=== PATIENT | male | born 1945 | race Two or more races ===

== ENCOUNTER 2020-03-29 10:49 | Observation (INO) | payer OTHER ==
[~2020-03-29] VITALS: Ht 180.3 cm; Wt 73.4 kg
[2020-03-29] MEDS ORDERED: cefTRIAXone 1GM/50ML D5W 50 ML IV ONE (11:00)
[2020-03-29] MEDS ORDERED: DexAMETHasone SOD PHOS 10MG/1ML VIAL INJ IV ONE (11:00)
[2020-03-29] MEDS ORDERED: FUROSEMIDE 20 MG/2 ML VIAL IV ONE (11:00)
[2020-03-29 11:37] LABS: Hematocrit 41.1 % (41.0-53.0); Hemoglobin 13.5 g/dL (13.5-17.5); Mean Corpuscular Hemoglobin 30.3 pg (28.0-32.0); Mean Corpuscular Volume 91.9 fL (80.0-100.0); Platelet Count (auto) 254 10^3/uL (140-450); Red Blood Cells 4.47 10^6/uL (4.5-5.90); Red Cell Distribution Width 17.6 % (11.8-14.3); White Blood Cell 18.3 10^3/uL (4.4-10.8)
[2020-03-29 11:51] LABS: Albumin 1.8 g/dL (3.4-5.0); Calcium 8.6 mg/dL (8.5-10.1); Potassium 4.2 mmol/L (3.5-5.1)
[2020-03-29 11:55] LABS: Lactic Acid w/Reflex 2.7 mmol/L (0.4-2.0)
[2020-03-29 11:59] LABS: BUN/Creatinine Ratio 14.6; Bilirubin, Total 0.5 mg/dL (0.2-1.0); CRP High Sensitivity 2.71 mg/dL (< 0.3); Total Protein 4.6 g/dL (6.4-8.2)
[2020-03-29 12:05] LABS: Basophils % (manual) 0 (0.0-2.0); Blast Cells 0; Eosinophils % (manual) 0 (0-7); Metamyelocytes % 0; Promyelocytes % 0; Reactive Lymphocytes 0
[2020-03-29 12:11] LABS: INR 0.98 (0.9-1.15); Partial Thromboplastin Time 25.1 sec (23.0-31.2)
[2020-03-29] MEDS ORDERED: SODIUM CHLORIDE 0.9% 500 ML IV ONE (12:31)
[2020-03-29] MEDS ORDERED: SODIUM CHLORIDE 0.9% 1,000 ML IV ONE (12:31)
[2020-03-29] MEDS ORDERED: ENOXAPARIN SOD 80 MG/0.8ML SYRINGE SC ONE (12:45)
[2020-03-29 13:00] LABS: Band Neutrophils % (manual) 1; Lymphocytes % (manual) 1 (10.0-50.0); Monocytes % (manual) 1 (0-12); Myelocytes % 1
[2020-03-29] MEDS ORDERED: MORPHINE SULF INJ 2 MG/ML SYRINGE 1ML IV PRN (13:15)
[2020-03-29] MEDS ORDERED: VANCOMYCIN PER PHARMACY 0 MG IV SCH (13:15)
[2020-03-29] MEDS ORDERED: PIPERACILLIN-TAZOB 2.25GM 50 ML IV SCH (13:15)
[2020-03-29] MEDS ORDERED: NITROGLYCERIN 0.4 MG SL TAB SL PRN (13:15)
[2020-03-29 13:27] LABS: Urine Bacteria MOD /hpf (None Seen); Urine Blood Negative /uL (Negative); Urine Hyaline Cast FEW /lpf (0 - 2); Urine WBC 64 /hpf (0 - 3); Urine WBC Clumps PRESENT /hpf (None Seen)
--- NOTE | 2020-03-29 13:50 | NUR ---
Respiratory note: ASSESSED PT , PT WAS RESTING , NO RESP DISTRESS NOTED. HR 74, RR 18, SPO2 98% ON 3L N/C.
[2020-03-29] MEDS ORDERED: VANCOMYCIN 1GM/250ML 250 ML IV ONE ×2 (15:00→22:00)
--- NOTE | 2020-03-29 15:00 | NUR ---
Telemetry admit from AMY BONILLA admitted to Telemetry unit after SBAR received. Patient oriented to PAMELA RAMÍREZ, primary RN, unit, room, bed, and unit policies regarding patient care and visiting hours. Patient now on continuous telemetry monitoring, tele box # 7 and telemetry reading on arrival 76 NSR. Patient placed on bedside oxygen 3l, weighed by bedscale and encouraged to call if they need something. All questions and concerns addressed, patient verbalized understanding.
[2020-03-29] MEDS ORDERED: LEVE1TAB46 PO (15:25)
[2020-03-29] MEDS ORDERED: ATOR40TA52 PO (15:25)
[2020-03-29] MEDS ORDERED: APIX5TAB PO (15:25)
[2020-03-29] MEDS ORDERED: CARV3.1240 PO (15:25)
[2020-03-29] MEDS ORDERED: CHOL100029 PO (15:25)
[2020-03-29] MEDS ORDERED: FER325T PO (15:25)
[2020-03-29] MEDS ORDERED: OMEG100078 PO (15:25)
[2020-03-29] MEDS ORDERED: AMLO5TAB15 PO (15:25)
[2020-03-29] MEDS ORDERED: PRED-158 PO (15:25)
[2020-03-29] MEDS ORDERED: LATA0.0019 EACHEYE (15:25)
[2020-03-29] MEDS ORDERED: LISI-646 PO (15:25)
[2020-03-29] MEDS ORDERED: OMEP-263 PO (15:25)
--- NOTE | 2020-03-29 16:23 | NUR ---
UPDATED OZZY ARI ON POC. OZZY IS AN RN AND WOULD LIKE TO SPEAK TO THE MD DIRECTLY PLEASE HER # [phone].
[2020-03-29 17:00] VITALS: BP 141/95
--- NOTE | 2020-03-29 17:30 | NUR ---
CARDIO DR YOLANDA HODGES WANTS TO WAIT TO RESUME HOME MEDICATIONS AT THIS TIME. WILL CONTINUE TO MONITOR
[2020-03-29] MEDS: AZITHROMYCIN 500MG/ 250ML 250 ML IV SCH (17:31)
--- NOTE | 2020-03-29 18:13 | NUR ---
PATIENT OFF TELE REPLACED MONITOR AND PATIENT REMOVED AGAIN. PATIENT ALERT AND ORIENTED TO SELF AND HIS AND SITUATION. PATIENT REFUSING TELE MONITOR AFTER EDUCATION. WILL CONTINUE TO MONITOR.
--- NOTE | 2020-03-29 19:30 | NUR ---
Opening Shift Note Assumed care of patient, awake and alert. No S/S of distress/SOB or pain. On 3LNC saturating at 98%. Patient has dyson catheter draining clear light dewayne urine. Instructed on POC and to call for assist PRN, will continue to monitor for changes Q1hr and PRN. Bed placed in lowest position, bed alarm turned on and call light within reach.
[2020-03-29 20:00] VITALS: BP 147/78
--- NOTE | 2020-03-29 20:00 | NUR ---
Patient keeps refusing tele box. Will try again later.
[2020-03-29] MEDS: PIPERACILLIN-TAZOB 2.25GM 50 ML IV SCH (21:00)
[2020-03-29 22:00] VITALS: BP 147/78
[2020-03-30] MEDS: PIPERACILLIN-TAZOB 2.25GM 50 ML IV SCH ×4 (02:48→20:50)
--- NOTE | 2020-03-30 03:00 | NUR ---
Report given to LEONARDO Castillo.
--- NOTE | 2020-03-30 03:24 | NUR ---
Patient transferred to [facility] with all personal belongings. No distress noted at time of transfer.
[2020-03-30 05:31] VITALS: BP 151/93
--- NOTE | 2020-03-30 06:52 | NUR ---
CLOSING SHIFT NOTE WILL ENDORSE CARE TO DAY SHIFT RN, PT [id number], NO S/S OF DISTRESS OR SOB
[2020-03-30 08:00] VITALS: BP 150/78
[2020-03-30 08:26] VITALS: BP 150/86
[2020-03-30 09:03] LABS: Basophils # (auto) 0 10 ^3/uL (0-0.2); Basophils % (auto) 0.1 % (0.0-2.0); Eosinophils # (auto) 0 10 ^3/uL (0-0.8); Hematocrit 42.3 % (41.0-53.0); Hemoglobin 14.1 g/dL (13.5-17.5); Lymphocytes # (auto) 0.5 10 ^3/uL (0.4-5.4); Mean Corpuscular Hemoglobin 30.5 pg (28.0-32.0); Mean Corpuscular Hgb Conc. 33.2 g/dL (32.0-36.0); Mean Corpuscular Volume 91.6 fL (80.0-100.0); Monocytes # (auto) 0.6 10 ^3/uL (0-1.3); Neutrophils # (auto) 15.2 10 ^3/uL (1.6-8.6); Neutrophils % (auto) 92.9 % (37.0-80.0); Nucleated Red Blood Cells % 0.1 %; Platelet Count (auto) 160 10^3/uL (140-450); Red Blood Cells 4.62 10^6/uL (4.5-5.90); Red Cell Distribution Width 17.6 % (11.8-14.3); White Blood Cell 16.3 10^3/uL (4.4-10.8)
--- NOTE | 2020-03-30 09:30 | NUR ---
PHONE CONSENTS FOR THORACENTESIS PATIENT CONTINUES WITH EPISODES OF CONFUSION AND CONTINUED TO BELIEVE HE WAS SCHEDULED FOR AN MRI NOT A THORACENTESIS. DR GARRETT AND THIS RN SPOKE WITH TO PHONE CONSENT FOR THORACENTESIS. VERBALIZED UNDERSTANDING OF PROCEDURE AND RISKS VERSUS BENEFITS EXPLAINED BY DR GARRETT AND REINFORCED BY THIS RN; DR GARRETT ALSO BEDSIDE TO SPEAK WITH THE PATIENT. CONSENTS SIGNED BY 2 RNS AND PLACED IN HARD CHART.
[2020-03-30] MEDS: AZITHROMYCIN 500MG/ 250ML 250 ML IV SCH (10:02)
--- NOTE | 2020-03-30 10:30 | NUR ---
WOUND PHOTO TAKEN OF LEFT HAND
[2020-03-30 11:27] LABS: Calcium 8.3 mg/dL (8.5-10.1); Potassium 4.2 mmol/L (3.5-5.1)
--- NOTE | 2020-03-30 11:49 | NUR ---
THORACENTESIS DONE BY DR NAIK IN ULTRASOUND. PT TOLERATED WELL. VS [id number]%. 400 ML OF PLEURAL FLUID REMOVED AND SENT TO LAB Addendum: 03/30/20 at 1719 by PAMELA RAMÍREZ RN dressing on left posterior lateral back, gauze with tegaderm, clean dry and intact.
[2020-03-30 12:50] VITALS: BP 160/56
[2020-03-30 16:41] VITALS: BP 150/91
[2020-03-30] MEDS ORDERED: hydrALAZINE HCL 20 MG/ML VL IV PRN (17:15)
--- NOTE | 2020-03-30 17:19 | NUR ---
resumed home medication per dr molina resume carvedilol , amlodipine, hold lisinopril.
--- NOTE | 2020-03-30 17:21 | NUR ---
PATIENT HISTORY OF FALLS-DTR PER DTR ARI PATIENT HAS A HISTORY OF FALLS AND STROKE. RECENT FALL IN 2019 PATIENT HAD A STROKE WITH LEFT SIDE DEFICIT, FELL HIT HEAD; PATIENT WENT TO PT REHAB FROM SEPTEMBER TO OCTOBER 2019 AND WAS ABLE TO WALK WITH A CANE WITHOUT DIFFICULTY. DTR STATED THE PAST 2 MONTHS PATIENT INCREASED WEAKNESS AND 3 DAYS PRIOR TO TREE DRILLER PATIENT NO LONGER ABLE TO WALK.
--- NOTE | 2020-03-30 17:26 | NUR ---
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 PER PATIENTS BACK PAIN HAS INCREASED OVER THE LAST 2 MONTHS.
--- NOTE | 2020-03-30 18:57 | NUR ---
ENDORSED CAR TO NIGHT RN.
--- NOTE | 2020-03-30 19:30 | NUR ---
RECEIVED REPORT FROM NURSE SANTIAGO TO RESUME CARE OF PATIENT.
[2020-03-30 22:00] VITALS: BP 134/91
--- NOTE | 2020-03-30 22:30 | NUR ---
PATIENT BEING DIFFICULT WITH CARE AND REFUSES TO TURN ATTEMPTED TO INFUSE IV DOSE OF ZOSYN. AND COMPLETED YET PATIENT IS LYING ON HIS STOMACH AND LEFT ARM NOT ANATOMICALLY POSITTION PROPERLY TO PROMOTE PERFUSION. WILL CONTINUE TO MERCEDES HERMAN.
[2020-03-31] MEDS: PIPERACILLIN-TAZOB 2.25GM 50 ML IV SCH ×4 (03:00→21:34)
--- NOTE | 2020-03-31 03:30 | NUR ---
ATTEMPTED TO GIVE DOSE OF IV ZOSYN PATIENT NOT COOPERATIVE WITH CARE. PATIENT REFUSED. IV ACCESS IS NOT IN GOOD POSITION ON ARM TO INFUSE MEDICATION PATIENT ENTIRE LEFT ARM SWELLING AND BRUISING. ATTEMPTED TO INSERT IV ACCESS WITH NO SUCCESS PATIENT HAS DIFFICULT VEINS AND BUE SWELLING AND IS BEING UNCOOPERATIVE WITH CARE. PATIENT REFUSING TO HAVE IV ACCESS INPUTTED. WILL CONTINUE TO MONITOR PATIENT.
[2020-03-31 05:00] VITALS: BP 140/72
--- NOTE | 2020-03-31 08:10 | NUR ---
Opening Shift Note Assumed care of patient, awake and alert x2. No S/S of distress/SOB or pain. Instructed on POC and to call for assist PRN, will continue to monitor for changes Q1hr and PRN.
[2020-03-31 09:00] VITALS: BP 122/67
--- NOTE | 2020-03-31 09:00 | NUR ---
Bedside Commode Assisted patient to bedside commode with moderate assistance.
[2020-03-31 09:46] LABS: Basophils # (auto) 0.1 10 ^3/uL (0-0.2); Basophils % (auto) 0.5 % (0.0-2.0); Eosinophils # (auto) 0.2 10 ^3/uL (0-0.8); Eosinophils % (auto) 1.2 % (0.0-7.0); Hematocrit 38.9 % (41.0-53.0); Hemoglobin 12.9 g/dL (13.5-17.5); Lymphocytes # (auto) 0.6 10 ^3/uL (0.4-5.4); Lymphocytes % (auto) 4.7 % (10.0-50.0); Mean Corpuscular Hemoglobin 30.3 pg (28.0-32.0); Mean Corpuscular Hgb Conc. 33.1 g/dL (32.0-36.0); Mean Corpuscular Volume 91.4 fL (80.0-100.0); Monocytes # (auto) 0.4 10 ^3/uL (0-1.3); Monocytes % (auto) 3.4 % (0.0-12.0); Neutrophils # (auto) 11.9 10 ^3/uL (1.6-8.6); Neutrophils % (auto) 90.2 % (37.0-80.0); Nucleated Red Blood Cells % 0.1 %; Platelet Count (auto) 217 10^3/uL (140-450); Red Blood Cells 4.25 10^6/uL (4.5-5.90); Red Cell Distribution Width 17.1 % (11.8-14.3); White Blood Cell 13.1 10^3/uL (4.4-10.8)
[2020-03-31] MEDS ORDERED: CARVEDILOL 3.125 MG TAB PO SCH (10:00)
[2020-03-31] MEDS ORDERED: amLODIPine BESYLATE 5 MG TAB PO SCH (10:00)
[2020-03-31 10:03] LABS: BUN/Creatinine Ratio 17.8; Calcium 8.7 mg/dL (8.5-10.1); Potassium 4.4 mmol/L (3.5-5.1)
[2020-03-31] MEDS ORDERED: VANCOMYCIN 1GM/250ML 250 ML IV SCH ×2 (11:00→13:00)
--- NOTE | 2020-03-31 12:30 | NUR ---
WOUND CARE NOTE: IN TO SEE PATIENT AT THIS TIME PER WOUND CARE CONSULT REQUEST. PATIENT ADMITTED TO [facility] WITH DIAGNOSIS OF CHEST PAIN. CURRENT JOEY SCORE IS 17. PATIENT IS ABLE TO ASSIST WITH HIS TURNING/REPOSITIONING, BUT IS WEAK. PATIENT IS NOTED TO HAVE LIGHT RED, BUT BLANCHABLE SKIN TO SACRUM, PINK BLANCHABLE SKIN OVER ALL OTHER BONY PROMINENCES. PHOTOGRAPHED SACRUM BASELINE PHOTO. APPLIED BARRIER CREAM, OPTIFOAM GENTLE SACRAL DRESSING TO THE AREA. PATIENT HAS SMALL PARTIAL THICKNESS SKIN TEAR TO THE RIGHT DORSAL HAND. THERAHONEY AND OPTIFOAM GENTLE DRESSING IN PLACE. SKIN/WOUND CARE PLAN IMPLEMENTED. NO OTHER SKIN INTEGRITY ISSUES SEEN AT THIS TIME. RECOMMEND: FREQUENT TURN SCHEDULE Q 2 HOURS,PRN CONDITION PERMITS, WITH PRESSURE REDISTRIBUTION USING PILLOWS/WEDGES, BID/PRN APPLICATION WITH MOISTURE BARRIER CREAM, OPTIFOAM GENTLE SACRAL DRESSING PREVENTATIVE, EOD/PRN DRESSING CHANGE WITH THERAHONEY, OPTIFOAM GENTLE TO RIGHT DORSAL HAND WOUND, SKIN/WOUND CARE PLAN, DIETARY CONSULT, CONTINUED MONITORING BY WOUND CARE TEAM. Addendum: 03/31/20 at 1755 by Leola Javed RN Amended: Links added.
--- NOTE | 2020-03-31 12:45 | NUR ---
Call to [facility] Call to [facility], , left a message regarding a callback for new hospice consult.
[2020-03-31 13:00] VITALS: BP 141/76
[2020-03-31] MEDS: AZITHROMYCIN 500MG/ 250ML 250 ML IV SCH (14:33)
--- NOTE | 2020-03-31 15:42 | NUR ---
Call to Hospice Call to [facility] at this time. No response. Message already left. Awaiting call back.
--- NOTE | 2020-03-31 15:43 | NUR ---
Call to Dr. Dillon Call to Dr. Dillon at this time. Notified that RN has called twice to [facility] and received no callback.
[2020-03-31 17:00] VITALS: BP 150/83
--- NOTE | 2020-03-31 17:30 | NUR ---
Hospice Jennifer, from hospice, has visited patient. Jennifer states she will call and try to get patient home tonight. Awaiting callback with an update on time for transport per her instructions.
--- NOTE | 2020-03-31 19:15 | NUR ---
Opening Shift Note Assumed care of patient, awake and alert. No S/S of distress/SOB or pain. Instructed on POC and to call for assist PRN, will continue to monitor for changes Q1hr and PRN.
--- NOTE | 2020-03-31 19:21 | NUR ---
Closing Shift Note Patient resting in bed. No distress noted. Report given. warehouse worker 2nd shift RN aware of pending discharge, home on hospice. No call from hospice at this time to notify of transport. Will endorse care to the shift lab technician RN.
--- NOTE | 2020-03-31 20:00 | NUR ---
Spoke personally with Jennifer Vega parking control officer of [facility]. She said patient will go home tomorrow 8 AM not tonight for Medical equipment.
--- NOTE | 2020-03-31 21:00 | NUR ---
IV removal IV DC'd with sterile technique, catheter fully intact. Pressure dressing applied to site. Patient tolerated procedure well. Discharged with aftercare instructions per MD. NOTE:
--- NOTE | 2020-03-31 21:45 | NUR ---
IV insertion IV access obtained, via clean sterile technique by inserting left forearm 22 gauge catheter at after 3 attempt(s). IV secured properly. No trauma to site. Patient tolerated procedure well.
[2020-03-31 22:00] VITALS: BP 157/88
[2020-04-01] MEDS: PIPERACILLIN-TAZOB 2.25GM 50 ML IV SCH (03:46)
[2020-04-01 05:00] VITALS: BP 147/93
[2020-04-01 06:10] LABS: Hematocrit 35.2 % (41.0-53.0); Hemoglobin 12.3 g/dL (13.5-17.5); Mean Corpuscular Hemoglobin 31.4 pg (28.0-32.0); Mean Corpuscular Hgb Conc. 34.8 g/dL (32.0-36.0); Mean Corpuscular Volume 90.4 fL (80.0-100.0); Platelet Count (auto) 173 10^3/uL (140-450); Red Cell Distribution Width 16.8 % (11.8-14.3); White Blood Cell 10.5 10^3/uL (4.4-10.8)
[2020-04-01 06:17] LABS: Calcium 8.1 mg/dL (8.5-10.1); Potassium 3.8 mmol/L (3.5-5.1)
[2020-04-01 06:19] LABS: BUN/Creatinine Ratio 16.3
[2020-04-01 06:21] LABS: Band Neutrophils % (manual) 0; Basophils % (manual) 0 (0.0-2.0); Blast Cells 0; Eosinophils % (manual) 0 (0-7); Metamyelocytes % 0; Promyelocytes % 0; Reactive Lymphocytes 0
--- NOTE | 2020-04-01 06:50 | NUR ---
Pictures taken of skin tear on Left hand. patient no complains
[2020-04-01 07:20] LABS: Lymphocytes % (manual) 7 (10.0-50.0); Monocytes % (manual) 5 (0-12); Myelocytes % 1
[2020-04-01 09:00] VITALS: BP 151/77
--- NOTE | 2020-04-01 09:23 | NUR ---
Discharge instructions given as ordered. Encourage to follow up with hospice MD as instructed. Hospice service provided by [facility]. All questions and concerns addressed. Patient verbalized understanding. Medication reconciliation form completed and copy given to patient. IV removed with catheter intact, pressure dressing applied, dyson catheter removed. Telemetry unit returned to ICU. Patient transported home via [facility] [employer] with all personal belongings, accompanied by staff. Discharge wound photos previously taken. No distress noted at time of departure.
== END 2020-04-01 09:30 | disposition hospice, home (50) ==
LOC: ER 10:49 → EDBD 10:49 → TELE 10:50 → INTOOBSV 10:50 → TELE-EAST 15:06 → TELE-WESTW 03-30 03:20
PROVIDERS: ADMIT Internal Medicine; ATTEND Internal Medicine
DX: J96.00 Acute respiratory failure, unspecified whether with hypoxia or hypercapnia (principal); Z20.828 Contact with and (suspected) exposure to other viral communicable diseases; I13.0 Hypertensive heart and chronic kidney disease with heart failure and stage 1 through stage 4 chronic kidney disease, or unspecified chronic kidney disease; I50.9 Heart failure, unspecified; N18.3 Chronic kidney disease, stage 3 (moderate); J96.10 Chronic respiratory failure, unspecified whether with hypoxia or hypercapnia; J44.9 Chronic obstructive pulmonary disease, unspecified; J06.9 Acute upper respiratory infection, unspecified; I27.81 Cor pulmonale (chronic); J18.9 Pneumonia, unspecified organism; E78.5 Hyperlipidemia, unspecified; I70.0 Atherosclerosis of aorta; E86.0 Dehydration; I21.4 Non-ST elevation (NSTEMI) myocardial infarction; I97.190 Other postprocedural cardiac functional disturbances following cardiac surgery; R00.1 Bradycardia, unspecified; J90 Pleural effusion, not elsewhere classified; M81.0 Age-related osteoporosis without current pathological fracture; K57.30 Diverticulosis of large intestine without perforation or abscess without bleeding; D72.829 Elevated white blood cell count, unspecified; N39.0 Urinary tract infection, site not specified; B95.2 Enterococcus as the cause of diseases classified elsewhere; R51 Headache; R62.7 Adult failure to thrive; R79.89 Other specified abnormal findings of blood chemistry; Z99.81 Dependence on supplemental oxygen; Z86.73 Personal history of transient ischemic attack (TIA), and cerebral infarction without residual deficits; Z79.899 Other long term (current) drug therapy
CPT/HCPCS: 32555; 36415; 36600; 70450; 71045; 71250; 74176; 76604; 76942; 80048; 80053; 80202; 81001; 82728; 82805; 83605; 83615; 83880; 83986; 84484; 85007; 85025; 85027; 85379; 85610; 85730; 86141; 87040; 87070; 87086; 87088; 87186; 87205; 87426; 88104; 89051; 93005; 93306; 96361; 96365; 96366; 96367; 96368; 96372; 96375; 97163; 99291; C1729; C9803; G0378; J0456; J0696; J1100; J1650; J1940; J2543; J3370; J7030; U0003; 10022